=== PATIENT | female | born 1950 | race Caucasian/White ===

== ENCOUNTER → 2019-11-13 11:38 | Outpatient (CLI) | payer MEDICARE, SELFPAY ==
--- NOTE | ~2019-11-13 | XR_ITS ---
EXAMINATION: XR lumbar spine min 4V DATE: 11/13/2019 12:43 INDICATION: Myalgia and pain in the left leg TECHNIQUE: Anteroposterior and lateral in neutral, flexion and extension views of the lumbar spine, a nd cone-down lateral view of the lumbosacral junction were obtained. COMPARISON: None. FINDINGS: There are 5 mm of anterolisthesis of L3 on L4 and L4 on L5. No laxity is present with flexi on or extension. There is moderate loss of intervertebral disc space height at L2-3 and L3-4 and mild loss of intervertebral disc space height throughout the remainder of the lumbar spine. The vertebral body heights are normal. There is severe lower lumbar facet osteoarthritis. No fracture is identifie d. Degenerative osteophytes project from the anterior endplates of multiple vertebral bodies. The bow el gas pattern is normal. There is calcified atherosclerosis. IMPRESSION: 1. Severe lumbar spondylosis without acute findings. Reviewed, dictated and finalized at location A. [employer]
== END ==
DX: M47.26 Other spondylosis with radiculopathy, lumbar region (principal); M99.05 Segmental and somatic dysfunction of pelvic region; M99.03 Segmental and somatic dysfunction of lumbar region; M79.605 Pain in left leg
CPT/HCPCS: 72110